=== PATIENT | female | born 1990 ===

== ENCOUNTER 2023-03-27 05:02 | Inpatient (IN) | payer MEDICAID ==
[~2023-03-27 05:02] MED LIST: Gentamicin 330 MG in Sodium Chloride 0.9% 100 ML IV SCH
[2023-03-27] MEDS: Lactated Ringers 1,000 ML IV SCH ×2 (05:30→06:26)
[2023-03-27] MEDS ORDERED: Sodium Chloride 0.9% 2.5 ML Syringe FLUSH PRN (05:52)
[2023-03-27] MEDS ORDERED: Sodium Chloride 0.9% 10 ML Syringe FLUSH PRN (05:52)
[2023-03-27] MEDS ORDERED: Citric Acid/Sodium Citrate Solution 30 ML Cup PO ONE (05:52)
[2023-03-27] MEDS ORDERED: Sodium Chloride 0.9% 20 ML SDV IV PRN (05:52)
[2023-03-27] MEDS ORDERED: Oxytocin/0.9 % Sodium Chloride 30 UNIT/500 ML BAG IV SCH ×2 (06:00→09:15)
[2023-03-27 06:27] LABS: HEMATOCRIT 34.7 % (36.0-46.0); HEMOGLOBIN 11.3 g/dL (12.0-16.0); MEAN CORPUSCULAR HEMOGLOBIN 27.6 pg (27.0-32.0); MEAN CORPUSCULAR HGB CONC 32.6 g/dL (31.0-37.0); MEAN CORPUSCULAR VOLUME 84.6 fL (80.0-98.0); MEAN PLATELET VOLUME 10.8 fL (7.40-12.00); RED BLOOD CELL COUNT 4.1 M/uL (4.30-5.90); WHITE BLOOD CELL COUNT,WBC 7.81 K/uL (4.0-11.0)
[2023-03-27] MEDS ORDERED: Dexamethasone 4 MG/ML 5 ML MDV ONE (07:38)
[2023-03-27] MEDS ORDERED: ceFAZolin 1 GM Vial ONE (07:38)
[2023-03-27] MEDS ORDERED: fentaNYL 100 MCG/2 ML SDV ONE (07:38)
[2023-03-27] MEDS ORDERED: Ketorolac 30 MG/ML SDV ONE (07:38)
[2023-03-27] MEDS ORDERED: Oxytocin 10 Units/1 ML SDV ONE (07:38)
[2023-03-27] MEDS ORDERED: Ropivacaine 0.5% 5 MG/ML 30 ML SDV ONE ×2 (07:38→08:58)
[2023-03-27] MEDS ORDERED: Ondansetron 4 MG/2 ML SDV ONE (07:38)
[2023-03-27] MEDS ORDERED: Morphine PF 10 MG/10 ML SDV ONE (07:39)
[2023-03-27] MEDS ORDERED: Gentamicin 330 MG in Sodium Chloride 0.9% 100 ML IV SCH (07:45)
[2023-03-27] MEDS ORDERED: Tranexamic Acid 1,000 MG/10 ML Vial ONE (08:46)
[2023-03-27] MEDS ORDERED: Bupivacaine 0.5% 10 ML SDV ONE (08:58)
[2023-03-27] MEDS ORDERED: Ondansetron 4 MG/2 ML SDV IVPUSH PRN ×3 (09:11→11:11)
[2023-03-27] MEDS ORDERED: Acetaminophen/oxyCODONE 325-5 MG Tab PO PRN ×2 (09:11→11:11)
[2023-03-27] MEDS ORDERED: Methylergonovine 0.2 MG/1 ML Amp IM PRN (09:11)
[2023-03-27] MEDS ORDERED: Misoprostol 200 MCG Tab RECTAL PRN (09:11)
[2023-03-27] MEDS ORDERED: Oxytocin 10 Units/1 ML SDV IM PRN (09:11)
[2023-03-27] MEDS ORDERED: diphenhydrAMINE 50 MG/ML SDV IVPUSH PRN ×2 (09:11→11:11)
[2023-03-27] MEDS ORDERED: Lanolin 100% Cream 7 GM Tube TOP PRN (09:11)
[2023-03-27] MEDS ORDERED: Bisacodyl 10 MG Supp RECTAL PRN (09:11)
[2023-03-27] MEDS ORDERED: Lactated Ringers 1,000 ML IV SCH (09:15)
[2023-03-27 09:19] LABS: PH,UMBILICAL ARTERIAL 7.3 (7.18-7.38); PH,UMBILICAL VENOUS 7.333 (7.25-7.45)
[2023-03-27] MEDS ORDERED: Metoclopramide 10 MG/2 ML SDV IVPUSH PRN (11:11)
[2023-03-27] MEDS ORDERED: Morphine 2 MG/ML SYRINGE IVPUSH PRN (11:11)
[2023-03-27] MEDS ORDERED: HYDROmorphone 2 MG/ML Syringe IVPUSH PRN (11:11)
[2023-03-27] MEDS ORDERED: Albuterol 0.083% 2.5 MG/3 ML Neb Soln NEB PRN (11:11)
[2023-03-27] MEDS ORDERED: fentaNYL 100 MCG/2 ML SDV IVPUSH PRN ×2 (11:11)
[2023-03-27] MEDS ORDERED: ePHEDrine 50 MG/ML SDV IVPUSH PRN (11:11)
[2023-03-27] MEDS ORDERED: Naloxone 0.4 MG/ML SDV IVPUSH PRN (11:11)
[2023-03-27] MEDS ORDERED: droPERidol 5 MG/2 ML SDV IVPUSH PRN (11:11)
[2023-03-27] MEDS ORDERED: Acetaminophen 1,000 MG in Premix Bag 1 BAG IV ONE (15:03)
[2023-03-27] MEDS: Docusate Sodium 100 MG Cap PO SCH (20:44)
[2023-03-28 06:11] LABS: HEMATOCRIT 35.1 % (36.0-46.0)
[2023-03-28] MEDS: Docusate Sodium 100 MG Cap PO SCH ×2 (08:42→22:39)
[2023-03-28] MEDS: Prenatal Multivitamin with Calcium/Folic Acid/Iron Tab PO SCH (08:42)
[2023-03-28] MEDS: Escitalopram 10 MG Tab PO SCH (08:43)
[2023-03-28] MEDS: Acetaminophen/oxyCODONE 325-5 MG Tab PO PRN ×3 (08:43→18:28)
[2023-03-28] MEDS: Ibuprofen 800 MG Tab PO PRN ×2 (10:13→18:28)
[2023-03-29] MEDS: Acetaminophen/oxyCODONE 325-5 MG Tab PO PRN ×3 (04:09→14:32)
[2023-03-29] MEDS: Ibuprofen 800 MG Tab PO PRN (06:51)
[2023-03-29] MEDS: Docusate Sodium 100 MG Cap PO SCH (10:19)
[2023-03-29] MEDS: Escitalopram 10 MG Tab PO SCH (10:19)
[2023-03-29] MEDS: Prenatal Multivitamin with Calcium/Folic Acid/Iron Tab PO SCH (10:22)
== END 2023-03-29 14:45 | disposition home or self-care (01) | DRG 788 ==
LOC: MW.OB 05:02
PROVIDERS: ADMIT Obstetrics & Gynecology; ATTEND Obstetrics & Gynecology
PROC: 10D00Z1 Extraction of Products of Conception, Low, Open Approach (ICD-10-PCS; principal; 2023-03-27)
DX: O34.211 Maternal care for low transverse scar from previous cesarean delivery (principal); O99.344 Other mental disorders complicating childbirth; F32.A Depression, unspecified; O75.89 Other specified complications of labor and delivery; O99.02 Anemia complicating childbirth; O90.89 Other complications of the puerperium, not elsewhere classified; Z3A.39 39 weeks gestation of pregnancy; Z37.0 Single live birth; Z90.49 Acquired absence of other specified parts of digestive tract; Z88.0 Allergy status to penicillin
CPT/HCPCS: 01961; 36415; 64488; 82803; 85014; 85018; 85027; 86592; 86850; 86900; 86901; A9270-GY; J0131; J0690; J1100; J1580; J1885; J2274; J2405; J2590; J2795; J3010; J3370; J3490; J7050; J7120